=== PATIENT | male | born 1945 | race Caucasian/White ===

== ENCOUNTER 2019-11-09 16:32 | Inpatient (IN) | payer OTHER, MEDICARE ==
[~2019-11-09] VITALS: Ht 170.2 cm; Wt 73.7 kg
[2019-11-09] MEDS ORDERED: OXYMETAZOLINE HCL 0.05% NAS 1 SPRAY BTL ONE ×2 (16:44→17:00)
[2019-11-09] MEDS ORDERED: SILVER NITRATE SWABS ONE (17:41)
[2019-11-09] MEDS ORDERED: BICALUTAMIDE50 MG PO (17:43)
[2019-11-09] MEDS ORDERED: SPIRONOLACTONE25 MG PO (17:43)
[2019-11-09] MEDS ORDERED: FLOMAX0.4 MG PO (17:43)
[2019-11-09] MEDS ORDERED: ENTRESTO 24 MG1 EACH PO (17:43)
[2019-11-09] MEDS ORDERED: ALLOPURINOL100 MG PO (17:43)
[2019-11-09] MEDS ORDERED: METOPROLOL TART50 MG PO (17:43)
[2019-11-09] MEDS ORDERED: ELIQUIS5 MG PO (17:43)
[2019-11-09] MEDS ORDERED: TORSEMIDE20 MG (17:48)
[2019-11-09] MEDS ORDERED: SILVER NITRATE SWABS TOP ONE (18:15)
[2019-11-09] MEDS ORDERED: ONDANSETRON HCL INJ 2MG/ML 2ML 2 MG/ML VIAL IV PRN (18:30)
[2019-11-09] MEDS ORDERED: SODIUM CHLORIDE FLUSH 10 ML SYR INJ PRN (18:30)
[2019-11-09] MEDS ORDERED: MORPHINE SULFATE 2 MG/ML SYR 1ML IV PRN (19:00)
[2019-11-09] MEDS ORDERED: MORPHINE SULFATE INJ 4 MG/ML INJ 1ML IV PRN (19:00)
[2019-11-09 20:04] VITALS: BP 88/62
[2019-11-09] MEDS ORDERED: PREDNISONE10 MG PO (20:34)
[2019-11-09] MEDS ORDERED: PANTOPRAZOLE SO40 MG PO (20:34)
[2019-11-09] MEDS ORDERED: ATORVASTATIN CA10 MG PO (20:34)
[2019-11-09 21:19] VITALS: BP 88/62
[2019-11-09 21:47] VITALS: BP 88/62
[2019-11-09] MEDS ORDERED: PREDNISONE 10 MG TAB PO SCH (22:00)
[2019-11-10] VITALS (7 sets, daily range): BP systolic 92–105; BP diastolic 62–71
[2019-11-10] MEDS ORDERED: SACUBITRIL/VALSARTAN 1 EACH TABLET PO SCH (09:00)
[2019-11-10 09:03] LABS: BASOPHILS % 0.2 % (0.0-1.0); EOSINOPHILS % 0.1 % (0.0-6.0); HEMATOCRIT 36.7 % (38.2-49.6); HEMOGLOBIN 12.1 g/dL (14.0-18.0); LYMPHOCYTES # (AUTO) 1.7 (1.0-3.2); LYMPHOCYTES % 12.9 % (18.0-39.1); MEAN CORPUSCULAR HEMOGLOBIN 30.2 pg (28-32); MEAN CORPUSCULAR VOLUME 91.5 fL (81-99); MONOCYTES # (AUTO) 1.4 (0.2-0.8); MONOCYTES % 10.5 % (4.4-11.3); NEUTROPHILS # (AUTO) 9.7 (2.1-6.9); NEUTROPHILS % 72.8 % (38.7-80.0); PLATELET COUNT 195 x10e3/uL (140-360); RED BLOOD COUNT 4.01 x10e6/uL (4.3-5.7); RED CELL DISTRIBUTION WIDTH 14.4 % (11.7-14.4)
[2019-11-10 09:22] LABS: ALBUMIN 4.1 g/dL (3.5-5.0); ALBUMIN/GLOBULIN RATIO 1.5 (0.8-2.0); ANION GAP 19.4 mmol/L (8-16); CALCIUM 9.4 mg/dL (8.4-10.2); CREATININE, SERUM 1.59 mg/dL (0.72-1.25); POTASSIUM 5.4 mmol/L (3.5-5.1)
[2019-11-10 10:11] LABS: FREE T4 (FREE THYROXINE) 1.27 ng/dL (0.8-1.8); THYROID STIMULATING HORMONE 0.911 uIU/mL (0.350-4.940)
[2019-11-10] MEDS: PANTOPRAZOLE SOD 40 MG TABEC PO SCH (10:27)
[2019-11-10] MEDS: BICALUTAMIDE 50 MG TABLET PO SCH (10:30)
[2019-11-10] MEDS: ALLOPURINOL 100 MG TAB PO SCH (10:31)
[2019-11-10 10:40] LABS: INR 1.47; PROTHROMBIN TIME 18.6 seconds (11.9-14.5)
[2019-11-10 10:41] LABS: PARTIAL THROMBOPLASTIN TIME 32.5 seconds (23.8-35.5)
[2019-11-10] MEDS: SALINE 0.65% NAS SOLN 1 SPRAY BTL SCH ×4 (11:50→21:55)
[2019-11-10] MEDS: NEOMYCIN/POLYMYXIN/BACITRACIN 15 GM TUBE TOP SCH ×3 (11:50→21:55)
[2019-11-10] MEDS ORDERED: ACETAMINOPHEN 325 MG TAB PO PRN (12:15)
[2019-11-10] MEDS ORDERED: SOD POLYSTYRENE SULFONATE SUSP 15 GM/60 ML BTL PO ONE (13:00)
[2019-11-10] MEDS ORDERED: SODIUM CHLORIDE 0.9% 250ML 250 ML IV ONE (18:15)
[2019-11-10] MEDS: ATORVASTATIN 10 MG TAB PO SCH (21:55)
[2019-11-10] MEDS: TAMSULOSIN HCL 0.4 MG CAP PO SCH (21:55)
[2019-11-11] VITALS (9 sets, daily range): BP systolic 82–102; BP diastolic 59–86
[2019-11-11] MEDS: SALINE 0.65% NAS SOLN 1 SPRAY BTL SCH ×6 (01:21→22:00)
[2019-11-11 05:47] LABS: BASOPHILS % 0.2 % (0.0-1.0); EOSINOPHILS % 0.2 % (0.0-6.0); HEMOGLOBIN 10.9 g/dL (14.0-18.0); LYMPHOCYTES # (AUTO) 1.5 (1.0-3.2); LYMPHOCYTES % 11.2 % (18.0-39.1); MEAN CORPUSCULAR HEMOGLOBIN 31.1 pg (28-32); MEAN CORPUSCULAR VOLUME 94.3 fL (81-99); MONOCYTES # (AUTO) 1.2 (0.2-0.8); NEUTROPHILS # (AUTO) 9.9 (2.1-6.9); NEUTROPHILS % 76.2 % (38.7-80.0); PLATELET COUNT 151 x10e3/uL (140-360); RED CELL DISTRIBUTION WIDTH 14.5 % (11.7-14.4)
[2019-11-11 06:04] LABS: ALBUMIN 3.5 g/dL (3.5-5.0); ALBUMIN/GLOBULIN RATIO 1.3 (0.8-2.0); ANION GAP 17.4 mmol/L (8-16); CALCIUM 8.8 mg/dL (8.4-10.2); CREATININE, SERUM 1.4 mg/dL (0.72-1.25); MAGNESIUM 2.2 MG/DL (1.3-2.1); PHOSPHORUS 3.3 MG/DL (2.3-4.7); POTASSIUM 4.4 mmol/L (3.5-5.1)
[2019-11-11] MEDS: PANTOPRAZOLE SOD 40 MG TABEC PO SCH (08:14)
[2019-11-11] MEDS: ALLOPURINOL 100 MG TAB PO SCH (08:15)
[2019-11-11] MEDS: NEOMYCIN/POLYMYXIN/BACITRACIN 15 GM TUBE TOP SCH ×2 (08:15→17:01)
[2019-11-11] MEDS: BICALUTAMIDE 50 MG TABLET PO SCH (08:15)
[2019-11-11] MEDS: ACETAMINOPHEN/CODEINE 300MG - 30MG TAB PO PRN ×2 (09:10→17:55)
[2019-11-11] MEDS ORDERED: HYDRALAZINE HCL 20 MG/ML VIAL IV PRN (11:00)
[2019-11-11] MEDS: MIDODRINE 2.5 MG TAB PO SCH ×2 (12:09→17:01)
[2019-11-11] MEDS ORDERED: DIGOXIN INJ 0.25 MG/ML 2 ML AMP IV ONE ×2 (13:45→19:58)
[2019-11-11] MEDS: CEPACOL SORE THROAT LOZENGES PO PRN ×2 (16:06→20:00)
[2019-11-11] MEDS: ATORVASTATIN 10 MG TAB PO SCH (20:00)
[2019-11-11] MEDS: TAMSULOSIN HCL 0.4 MG CAP PO SCH (20:00)
[2019-11-11] MEDS ORDERED: SODIUM CHLORIDE 0.9% 1000ML 1,000 ML IV ONE (23:15)
[2019-11-11] MEDS ORDERED: AMIODARONE HCL 150 MG/100 ML BAG IV ONE (23:15)
[2019-11-11] MEDS ORDERED: AMIODARONE HCL 900 MG in DEXTROSE 5% 500ML 500 ML IV ONE (23:30)
[2019-11-12] VITALS (8 sets, daily range): BP systolic 92–109; BP diastolic 60–71
[2019-11-12] MEDS: SALINE 0.65% NAS SOLN 1 SPRAY BTL SCH ×6 (01:29→21:00)
[2019-11-12] MEDS: ACETAMINOPHEN/CODEINE 300MG - 30MG TAB PO PRN ×2 (04:00→11:40)
[2019-11-12 05:57] LABS: BASOPHILS % 0.2 % (0.0-1.0); EOSINOPHILS # (AUTO) 0.1 (0.0-0.4); EOSINOPHILS % 1.2 % (0.0-6.0); HEMATOCRIT 31.4 % (38.2-49.6); HEMOGLOBIN 10.2 g/dL (14.0-18.0); LYMPHOCYTES # (AUTO) 1.3 (1.0-3.2); LYMPHOCYTES % 11.7 % (18.0-39.1); MEAN CORPUSCULAR HEMOGLOBIN 30.8 pg (28-32); MEAN CORPUSCULAR HGB CONC 32.5 g/dL (31-35); MEAN CORPUSCULAR VOLUME 94.9 fL (81-99); MONOCYTES # (AUTO) 0.9 (0.2-0.8); NEUTROPHILS # (AUTO) 8.5 (2.1-6.9); NEUTROPHILS % 75.7 % (38.7-80.0); PLATELET COUNT 161 x10e3/uL (140-360); RED BLOOD COUNT 3.31 x10e6/uL (4.3-5.7); RED CELL DISTRIBUTION WIDTH 14.3 % (11.7-14.4)
[2019-11-12 06:24] LABS: ALBUMIN 3.3 g/dL (3.5-5.0); ALBUMIN/GLOBULIN RATIO 1.3 (0.8-2.0); ANION GAP 17.4 mmol/L (8-16); CALCIUM 8.6 mg/dL (8.4-10.2); CREATININE, SERUM 1.51 mg/dL (0.72-1.25); POTASSIUM 4.4 mmol/L (3.5-5.1)
[2019-11-12] MEDS: BICALUTAMIDE 50 MG TABLET PO SCH (08:23)
[2019-11-12] MEDS: PANTOPRAZOLE SOD 40 MG TABEC PO SCH (08:23)
[2019-11-12] MEDS: ALLOPURINOL 100 MG TAB PO SCH (08:23)
[2019-11-12] MEDS: MIDODRINE 2.5 MG TAB PO SCH (08:23)
[2019-11-12] MEDS: NEOMYCIN/POLYMYXIN/BACITRACIN 15 GM TUBE TOP SCH ×2 (08:23→16:15)
[2019-11-12] MEDS ORDERED: SODIUM CHLORIDE 0.9% 250ML 250 ML IV ONE (11:30)
[2019-11-12] MEDS ORDERED: DIGOXIN INJ 0.25 MG/ML 2 ML AMP IV ONE (11:35)
[2019-11-12] MEDS: MIDODRINE HCL 5 MG TABLET PO SCH ×2 (12:13→16:15)
[2019-11-12] MEDS: SODIUM CHLORIDE 0.9% 1000ML 1,000 ML IV SCH (15:41)
[2019-11-12] MEDS: ATORVASTATIN 10 MG TAB PO SCH (21:00)
[2019-11-12] MEDS: TAMSULOSIN HCL 0.4 MG CAP PO SCH (21:00)
[2019-11-13] VITALS (8 sets, daily range): BP systolic 90–134; BP diastolic 58–93
[2019-11-13] MEDS: SODIUM CHLORIDE 0.9% 1000ML 1,000 ML IV SCH ×2 (00:50→17:08)
[2019-11-13] MEDS: SALINE 0.65% NAS SOLN 1 SPRAY BTL SCH ×6 (02:35→21:11)
[2019-11-13] MEDS ORDERED: BISACODYL 10 MG SUPP PR ONE (04:15)
[2019-11-13] MEDS ORDERED: LACTULOSE SYRUP 20 GM/30 ML UDC PO ONE (04:15)
[2019-11-13] MEDS: PANTOPRAZOLE SOD 40 MG TABEC PO SCH (07:30)
[2019-11-13] MEDS: NEOMYCIN/POLYMYXIN/BACITRACIN 15 GM TUBE TOP SCH ×3 (09:00→19:39)
[2019-11-13] MEDS: MIDODRINE HCL 5 MG TABLET PO SCH ×3 (09:39→16:08)
[2019-11-13] MEDS: ALLOPURINOL 100 MG TAB PO SCH (09:39)
[2019-11-13] MEDS: BICALUTAMIDE 50 MG TABLET PO SCH (09:39)
[2019-11-13] MEDS: ACETAMINOPHEN/CODEINE 300MG - 30MG TAB PO PRN (11:29)
[2019-11-13] MEDS ORDERED: METOPROLOL TARTRATE INJ 1 MG/ML VIAL IV ONE (15:15)
[2019-11-13] MEDS: METOPROLOL TARTRATE 25 MG TAB PO SCH (20:02)
[2019-11-13] MEDS: TAMSULOSIN HCL 0.4 MG CAP PO SCH (20:02)
[2019-11-13] MEDS: ATORVASTATIN 10 MG TAB PO SCH (20:02)
[2019-11-13] MEDS: APIXABAN 5 MG TABLET PO SCH (20:22)
[2019-11-14] VITALS: BP 104/68
[2019-11-14] MEDS: SALINE 0.65% NAS SOLN 1 SPRAY BTL SCH ×3 (01:12→11:18)
[2019-11-14 04:00] VITALS: BP 117/79
[2019-11-14] MEDS: SODIUM CHLORIDE 0.9% 1000ML 1,000 ML IV SCH (05:54)
[2019-11-14 06:42] LABS: BASOPHILS % 0.2 % (0.0-1.0); EOSINOPHILS # (AUTO) 0.2 (0.0-0.4); EOSINOPHILS % 2.1 % (0.0-6.0); HEMATOCRIT 28.1 % (38.2-49.6); HEMOGLOBIN 9.2 g/dL (14.0-18.0); LYMPHOCYTES # (AUTO) 1.1 (1.0-3.2); MEAN CORPUSCULAR HEMOGLOBIN 31.4 pg (28-32); MEAN CORPUSCULAR HGB CONC 32.7 g/dL (31-35); MEAN CORPUSCULAR VOLUME 95.9 fL (81-99); MONOCYTES # (AUTO) 0.7 (0.2-0.8); MONOCYTES % 8.2 % (4.4-11.3); NEUTROPHILS # (AUTO) 6.1 (2.1-6.9); NEUTROPHILS % 73.2 % (38.7-80.0); PLATELET COUNT 159 x10e3/uL (140-360); RED BLOOD COUNT 2.93 x10e6/uL (4.3-5.7); RED CELL DISTRIBUTION WIDTH 14.6 % (11.7-14.4)
[2019-11-14 07:01] LABS: ALANINE AMINOTRANSFERASE 16 IU/L (0-55); ALBUMIN 3.3 g/dL (3.5-5.0); ALBUMIN/GLOBULIN RATIO 1.4 (0.8-2.0); ALKALINE PHOSPHATASE 369 IU/L (40-150); ANION GAP 14.5 mmol/L (8-16); BLOOD UREA NITROGEN 35 mg/dL (7-26); BUN/CREATININE RATIO 32 (6-25); CALCIUM 8.5 mg/dL (8.4-10.2); CARBON DIOXIDE 16 mmol/L (22-29); CHLORIDE 111 mmol/L (98-107); EST GLOMERULAR FILTRATION RATE > 60 ML/MIN (60-); GLUCOSE 97 mg/dL (74-118); MAGNESIUM 2.3 MG/DL (1.3-2.1); POTASSIUM 4.5 mmol/L (3.5-5.1); SODIUM 137 mmol/L (136-145)
[2019-11-14 08:00] VITALS: BP 115/73
[2019-11-14] MEDS: ALLOPURINOL 100 MG TAB PO SCH (08:41)
[2019-11-14] MEDS: MIDODRINE HCL 5 MG TABLET PO SCH ×2 (08:41→12:01)
[2019-11-14] MEDS: BICALUTAMIDE 50 MG TABLET PO SCH (08:41)
[2019-11-14] MEDS: APIXABAN 5 MG TABLET PO SCH (08:41)
[2019-11-14] MEDS: PANTOPRAZOLE SOD 40 MG TABEC PO SCH (08:41)
[2019-11-14] MEDS: METOPROLOL TARTRATE 25 MG TAB PO SCH (08:43)
[2019-11-14 09:06] VITALS: BP 115/73
[2019-11-14 12:00] VITALS: BP 115/79
[2019-11-14] MEDS ORDERED: DEXTROSE 5% 250ML 250 ML IV ONE (12:57)
[2019-11-14] MEDS ORDERED: ONDANSETRON HCL 4 MG ORAL DISINTEGRATING TAB PO PRN (13:30)
[2019-11-14] MEDS ORDERED: TYLENOL # 31 EA PO (13:54)
[2019-11-14 16:00] VITALS: BP 98/64
[2019-11-14] MEDS: ACETAMINOPHEN/CODEINE 300MG - 30MG TAB PO PRN (17:37)
== END 2019-11-14 18:00 | disposition home or self-care (01) | DRG 151 ==
LOC: FSED 17:10 → ERHOLD 18:23 → MED/SURG 20:04 → OBSVTOIN 11-10 20:29 → MED/SURG3 11-11 14:17
PROVIDERS: ADMIT Internal Medicine; ATTEND Internal Medicine
PROC: 093K7ZZ Control Bleeding in Nasal Mucosa and Soft Tissue, Via Natural or Artificial Opening (ICD-10-PCS; principal; 2019-11-10)
DX: R04.0 Epistaxis (principal); I50.22 Chronic systolic (congestive) heart failure; C79.51 Secondary malignant neoplasm of bone; E87.5 Hyperkalemia; D64.9 Anemia, unspecified; C61 Malignant neoplasm of prostate; K21.9 Gastro-esophageal reflux disease without esophagitis; E78.5 Hyperlipidemia, unspecified; M10.9 Gout, unspecified; Z86.711 Personal history of pulmonary embolism; Z72.0 Tobacco use; Z80.42 Family history of malignant neoplasm of prostate; R53.1 Weakness; J34.2 Deviated nasal septum; Z91.81 History of falling; I95.9 Hypotension, unspecified; R00.0 Tachycardia, unspecified; M79.661 Pain in right lower leg; Z11.59 Encounter for screening for other viral diseases; T45.525A Adverse effect of antithrombotic drugs, initial encounter
CPT/HCPCS: 36415; 71046; 80053; 83735; 83880; 84100; 84439; 84443; 84480; 85025; 85610; 85730; 93005; 93306; 93970; 97139; 99251; 99284; G0378; J1160; J7030; J7050; J7060; J7070; J7512; U0002